=== PATIENT | male | born 1990 | race Caucasian/White ===

== ENCOUNTER 2016-07-14 15:59 | Emergency (ER) | payer OTHER ==
[~2016-07-14] VITALS: Ht 190.5 cm; Wt 181.0 kg
--- OUTSIDE RECORDS SUMMARY | 2016-07-14 16:07 | XMS REPORT | Continuity of Care Document ---
Author Author [facility] Organization [facility] Address Unknown Phone Unavailable Care Team Providers Care Ct Technician Name Role Phone No Pcp, Na PCP Unavailable Source Comments Some departments are not documenting in the electronic medical record. If you do not see the information that you expected, contact Release of Information in the Health Information Management department at [phone] for further assistance in locating additional records.[facility] Active Allergies and Adverse Reactions No Known Allergies Current Medications Prescription Sig. Disp. Refills Start End Date Status Date sumatriptan succinate Take 100 mg by mouth as Active (IMITREX) 100 mg tablet Needed for Migraine symptoms. Dose may be repeated in 2 hours if needed. Max of 2 tablets in 24 hours. DOCOSAHEXANOIC ACID/EPA Take by mouth daily. Active (FISH OIL PO) PV W-O ELISA/FERROUS Take by mouth daily. Active FUMARATE/FA (M-VIT PO) oxyCODONE (ROXICODONE, Take 1-2 Tabs by mouth 30 Tab 0 07/11/19 Active OXY-IR) 5 mg tablet every 4 hours as needed 17 for Pain docusate (COLACE) 100 mg Take 1 Cap by mouth daily 30 Cap 0 07/11/19 Active capsule as needed for 17 Constipation. Active Problems Problem Noted Date Umbilical hernia without obstruction and without gangrene 06/21/2016 Most Recent Encounters Date Type Specialty Providers Description 07/14/2016 Telephone General Surgery Sumeet Weller MD Nausea 07/11/2016 Hospital Sumeet Weller MD Umbilical hernia - Encounter 07/12/2016 07/11/2016 Anesthesia Kumar Armendariz, CHARGEBACK SPECIALIST Event 07/11/2016 Surgery Sumeet Weller MD LAPAROSCOPIC UMBILICAL HERNIA REPAIR WITH MESH 07/06/2016 Prep for Case General Surgery Sumeet Weller MD 06/21/2016 Office Visit General Surgery Sumeet Weller MD Umbilical hernia without obstruction and without gangrene (Primary Dx) Social History Tobacco Use Types Packs/Day Years Used Date Never Smoker Alcohol Use Drinks/Week oz/Week Comments No Last Filed Vital Signs Vital Sign Reading Time Taken Blood Pressure 136/59 07/12/2016 7:25 AM WHEELCHAIR DRIVER Pulse 71 07/12/2016 3:31 AM WHEELCHAIR DRIVER Temperature 36.5 C (97.7 F) 07/12/2016 7:25 AM WHEELCHAIR DRIVER Respiratory Rate 18 06/21/2016 9:21 AM WHEELCHAIR DRIVER Height 1.905 m (6' 3") 07/06/2016 5:25 PM WHEELCHAIR DRIVER Weight 180.985 kg (399 lb) 07/06/2016 5:25 PM WHEELCHAIR DRIVER Body Mass Index 49.87 07/06/2016 5:25 PM WHEELCHAIR DRIVER Oxygen Saturation 95% 07/12/2016 7:25 AM WHEELCHAIR DRIVER Plan of Care Date Type Specialty Providers Description 07/26/2016 Appointment General Surgery Sumeet Weller MD [address] [facility] [address] [place] [address] [phone] (Fax) Health Maintenance Due Date Last Done Comments Physical (Comprehensive) 10/26/1995 Exam Pertussis Vaccine 10/26/1999 Tetanus Vaccine 2005 Influenza Vaccine 01/27/2016 Procedures from Last 3 Months Procedure Name Priority Date/Time Associated Diagnosis Comments ECG-SCAN 07/13/2016 Results for this 12:06 PM WHEELCHAIR DRIVER procedure are in the results section. Results from Last 3 Months ECG-SCAN (07/13/2016 12:06 PM) Narrative Ordered by an unspecified provider. BASIC METABOLIC PANEL (07/12/2016 3:30 AM)Only the most recent of 2 results within the time period is included. Component Value Range Sodium 134 (L) 137-147 MMOL/L Potassium 4.6 3.5-5.1 MMOL/L Chloride 100 98-110 MMOL/L CO2 23 21-30 MMOL/L Anion Gap 11 3-12 Glucose 118 (H) 70-100 MG/DL Blood Urea Nitrogen 14 7-25 MG/DL Creatinine 0.84 0.4-1.24 MG/DL Calcium 9.6 8.5-10.6 MG/DL eGFR Non >60Comment: >60 mL/min The eGFR is not validated for use in drug dosing adjustments. Continue to use estimated creatinine clearance per dosing reference text. Please contact the Clinical Pharmacist for questions. eGFR >60Comment: >60 mL/min The eGFR is not validated for use in drug dosing adjustments. Continue to use estimated creatinine clearance per dosing reference text. Please contact the Clinical Pharmacist for questions. Specimen Blood CBC (07/12/2016 3:30 AM)Only the most recent of 2 results within the time period is included. Component Value Range White Blood Cells 18.5 (H) 4.5-11.0 K/UL RBC 4.75 4.4-5.5 M/UL Hemoglobin 13.9 13.5-16.5 GM/DL Hematocrit 42.5 40-50 % MCV 89.5 80-100 FL MCH 29.2 26-34 PG MCHC 32.6 32.0-36.0 G/DL RDW 13.3 11-15 % Platelet Count 345 150-400 K/UL MPV 7.9 7-11 FL Specimen Blood
--- NOTE | 2016-07-14 17:09 | ED Abdominal Pain ---
General Chief Complaint: Abdominal/GI Problems Stated Complaint: UNABLE TO PASS STOOL Nursing Triage Note: Pt had hernia repair on at [facility]. Pt reports no BM yesterday. Feeling "full" Denies fever. Sepsis Screen: No Definite Risk Exam Limitations: No Limitations History of Present Illness Time Seen By Provider: 17:08 Initial Comments To ER with no bowel movement for the past 4 days and states his abdomen feels full. He had umbilical hernia repair laparoscopically at [facility] on Sunday of this past week (today is Sunday). He is staying here with family but he resides normally in [place]. He did vomit once this morning has been afebrile. He reports that overall his abdominal pain is improving. Timing/Duration: 2-3 Days Severity/Quality: Mild Radiation: No Radiation Associated Symptoms: Nausea/Vomiting Allergies and Home Medications Allergies Coded Allergies: No Known Drug Allergies (Unverified , 07/14/16) Home Medications Oxycodone HCl/Acetaminophen 1 Each Tablet 1 EACH PO Q6H (Reported) Sennosides/Docusate Sodium 1 Each Tablet 1 EACH PO (Reported) Review of Systems Constitutional: see HPI EENTM: No Symptoms Reported Respiratory: No Symptoms Reported Cardiovascular: No Symptoms Reported Gastrointestinal: See HPI Abdominal Pain Constipated Nausea Vomiting Genitourinary: No Symptoms Reported Musculoskeletal: no symptoms reported Skin: no symptoms reported Psychiatric/Neurological: No Symptoms Reported Endocrine: No Symptoms Reported Past Laknzkd-Yfqqud-Wiseto Hx Patient Social History Recent Foreign Travel: No Contact w/Someone Who Travel: No Recent Infectious Disease Expo: No Physical Exam Vital Signs VS - Last 72 Hours, by Label 07/14/16 07/14/16 16:59 19:00 Temp 98.1 Pulse 92 84 Resp 18 16 B/P 181/101 165/103 Pulse Ox 98 99 O2 Delivery Room Air Capillary Refill : Less Than 3 Seconds General Appearance: WD/WN no apparent distress HEENT: PERRL/EOMI normal ENT inspection Neck: non-tender full range of motion Respiratory: normal breath sounds no respiratory distress no accessory muscle use Gastrointestinal: normal bowel sounds soft abnormal bowel sounds (hypoactive) distended Extremities: normal range of motion non-tender Neurologic/Psychiatric: alert normal mood/affect oriented x 3 Skin: normal color warm/dry Progress/Results/Core Measures Results/Orders Lab Results Laboratory Tests Test 07/14/16 17:35 Range/Units Alanine Aminotransferase (ALT/SGPT) 85 H 0-55 U/L Albumin 5.0 H 3.2-4.5 G/DL Alkaline Phosphatase 71 40-136 U/L Anion Gap 15 H 5-14 MMOL/L Aspartate Amino Transf (AST/SGOT) 49 H 5-34 U/L BUN/Creatinine Ratio 15 Band Neutrophils 6 % Basophils # (Auto) 0.0 0.0-0.1 10^3/uL Basophils % (Manual) 0 % Basophils (%) (Auto) 0 0-10 % Blood Morphology Comment NORMAL Blood Urea Nitrogen 15 7-18 MG/DL Calcium Level 10.1 8.5-10.1 MG/DL Carbon Dioxide Level 26 21-32 MMOL/L Chloride Level 97 L 98-107 MMOL/L Creatinine 1.02 0.60-1.30 MG/DL Eosinophils # (Auto) 0.1 0.0-0.3 10^3/uL Eosinophils % (Manual) 0 % Eosinophils (%) (Auto) 1 0-10 % Estimat Glomerular Filtration Rate > 60 Glucose Level 121 H 70-105 MG/DL Hematocrit 47 40-54 % Hemoglobin 16.3 13.3-17.7 G/DL Lymphocytes # (Auto) 1.7 1.0-4.0 X 10^3 Lymphocytes % (Manual) 12 % Lymphocytes (%) (Auto) 8 L 12-44 % Mean Corpuscular Hemoglobin 30 25-34 PG Mean Corpuscular Hemoglobin Concent 35 32-36 G/DL Mean Corpuscular Volume 86 80-99 FL Mean Platelet Volume 9.4 7.4-10.4 FL Monocytes # (Auto) 1.5 H 0.0-1.0 X 10^3 Monocytes % (Manual) 4 % Monocytes (%) (Auto) 7 0-12 % Neutrophils # (Auto) 18.7 H 1.8-7.8 X 10^3 Neutrophils % (Manual) 778 % Neutrophils (%) (Auto) 85 H 42-75 % Platelet Count 418 H 130-400 10^3/uL Potassium Level 4.9 3.6-5.0 MMOL/L Red Blood Count 5.49 4.35-5.85 10^6/uL Red Cell Distribution Width 13.2 10.0-14.5 % Sodium Level 138 135-145 MMOL/L Total Bilirubin 1.2 H 0.1-1.0 MG/DL Total Protein 8.7 H 6.4-8.2 G/DL White Blood Count 22.1 H 4.3-11.0 10^3/uL My Orders Orders-KEENAN PERDOMO APRN Saline Lock/Iv-Start (07/14/16 16:50) Cbc With Automated Diff (07/14/16 16:50) Comprehensive Metabolic Panel (07/14/16 16:50) Ct Abdomen/Pelvis W (07/14/16 16:50) Iohexol Injection (Omnipaque 350 Mg/Ml 1 (07/14/16 17:45) Ns (Ivpb) (Sodium Chloride 0.9% Ivpb Bag (07/14/16 17:45) Manual Differential (07/14/16 17:35) Benzocaine Extension Tube (Hurricaine Ex (07/14/16 18:51) Lactated Ringers (Lr 1000 Ml Iv Solution (07/14/16 19:15) Medications Given in ED Current Medications Medications Dose Ordered Sig/Nelly Route Start Time Stop Time Status Last Admin Dose Admin Iohexol 100 ml ONCE ONCE IV 07/14/16 17:45 07/14/16 17:46 DC 07/14/16 18:01 100 ML Sodium Chloride 100 ml ONCE ONCE IV 07/14/16 17:45 07/14/16 17:46 DC 07/14/16 18:01 80 ML Vital Signs/I&O Vital Sign - Last 12Hours 07/14/16 07/14/16 16:59 19:00 Temp 98.1 Pulse 92 84 Resp 18 16 B/P 181/101 165/103 Pulse Ox 98 99 O2 Delivery Room Air Blood Pressure Mean: 127 Diagnostic Imaging Comments NAME: FAY RAMOS [facility] REC#: [id number] PT STATUS: REG ER : 1990 PHYSICIAN: KEENAN PEDROMO APRN ADMIT DATE: 07/14/16/ER Signed Date of Exam:07/14/16 CT ABDOMEN/PELVIS W PROCEDURE: CT abdomen and pelvis with contrast. TECHNIQUE: Multiple contiguous axial images were obtained through the abdomen and pelvis after administration of intravenous contrast. INDICATION: Umbilical hernia surgery, abdominal pain and distention. COMPARISON: None. FINDINGS: There is some subsegmental atelectasis in both bases. There is fatty liver. Otherwise, the gallbladder, spleen, pancreas, adrenal glands, kidneys, and vascular structures are normal. Multiple distended loops of proximal colon and small bowel are present. This likely represents diffuse ileus. No obvious transition point is identified. Partial obstruction is not excluded. There is no unexpected free air or free fluid. Distal ureters and urinary bladder are normal. IMPRESSION: 1. Likely small bowel and proximal colonic Ileus. Follow-up recommended to exclude obstruction. 2. Fatty infiltration of the liver. 3. Subsegmental atelectasis in both lung bases. Dictated by: Dictated on workstation # [id number] Dict: 07/14/16 1824 Trans: 07/14/16 [id number] Interpreted by: REMEDIOS CARRILLO Electronically signed by: REMEDIOS CARRILLO 07/14/163 Departure Communication Time/Spoke to Admitting Phy: 19:03 Communication Discussed the case with transfer center who discussed the case with Dr. De Leon , surgeon on-call. Feels that this is a postoperative ileus and would recommend nothing by mouth status for a few days allowing the ileus to resolve itself. Patient could be kept here if he wishes or Dr. De Leon would accept patient in transfer back to . I will relay this conversation to our surgeon application consultant Dr. Duong and will coordinate care based on the phone call. 1906-I discussed this with the patient and he states that his preference would be to go back to [place]. He is a very pleasant young man, seems reliable source. States he would not like to go by ambulance because he otherwise feels well, he would like to go by private vehicle and agrees to sign a form stating that he refuses EMS transport. 1950-Room assignment of 4617-2. Vitals remain stable, will transfer via POV per his request. Impression Impression: Primary Impression: Ileus, postoperative Disposition: XFER SHT-TRM HOSP Condition: Stable Departure-Patient Inst. Referrals: NO,LOCAL PHYSICIAN (PCP/Family) Primary Care Physician KEENAN PERDOMO APRN Jul 14, 2016 17:09
[2016-07-14] MEDS ORDERED: OXYC-197 PO (17:12)
[2016-07-14] MEDS ORDERED: SENN-75 PO (17:12)
[2016-07-14 17:44] LABS: BASOPHILS % (AUTO) 0 % (0-10); EOSINOPHILS # (AUTO) 0.1 10^3/uL (0.0-0.3); EOSINOPHILS % (AUTO) 1 % (0-10); LYMPHOCYTES # (AUTO) 1.7 X 10^3 (1.0-4.0); LYMPHOCYTES % (AUTO) 8 % (12-44); MEAN CORPUSCULAR HEMOGLOBIN 30 PG (25-34); MEAN CORPUSCULAR HGB CONC 35 G/DL (32-36); MEAN CORPUSCULAR VOLUME 86 FL (80-99); MEAN PLATELET VOLUME 9.4 FL (7.4-10.4); MONOCYTES # (AUTO) 1.5 X 10^3 (0.0-1.0); MONOCYTES % (AUTO) 7 % (0-12); NEUTROPHILS # (AUTO) 18.7 X 10^3 (1.8-7.8); NEUTROPHILS % (AUTO) 85 % (42-75); PLATELET COUNT 418 10^3/uL (130-400); RED BLOOD COUNT 5.49 10^6/uL (4.35-5.85); RED CELL DISTRIBUTION WIDTH 13.2 % (10.0-14.5); WHITE BLOOD COUNT 22.1 10^3/uL (4.3-11.0)
[2016-07-14] MEDS ORDERED: NS 100 ML (IVPB) BAG IV ONE (17:45)
[2016-07-14] MEDS ORDERED: IOHEXOL 350 MG/ML 100 ML (OMNIPAQUE 350) VIAL IV ONE (17:45)
[2016-07-14 18:00] LABS: ALANINE AMINOTRANSFERASE 85 U/L (0-55); ANION GAP 15 MMOL/L (5-14); ASPARTATE AMINO TRANSFERASE 49 U/L (5-34); BILIRUBIN,TOTAL 1.2 MG/DL (0.1-1.0); BLOOD UREA NITROGEN 15 MG/DL (7-18); BUN/CREATININE RATIO 15; CALCIUM 10.1 MG/DL (8.5-10.1); CARBON DIOXIDE 26 MMOL/L (21-32); CHLORIDE 97 MMOL/L (98-107); CREATININE SERUM 1.02 MG/DL (0.60-1.30); GFR ESTIMATED > 60; GLUCOSE 121 MG/DL (70-105); POTASSIUM 4.9 MMOL/L (3.6-5.0); SODIUM 138 MMOL/L (135-145); TOTAL PROTEIN 8.7 G/DL (6.4-8.2)
[2016-07-14 18:13] LABS: BAND NEUTROPHILS 6 %; BASOPHILS % (MANUAL) 0 %; EOSINOPHILS % (MANUAL) 0 %; LYMPHOCYTES % (MANUAL) 12 %; NEUTROPHILS % (MANUAL) 778 %
--- NOTE | 2016-07-14 18:30 | Diagnostic Imaging Report ---
PROCEDURE: CT abdomen and pelvis with contrast. TECHNIQUE: Multiple contiguous axial images were obtained through the abdomen and pelvis after administration of intravenous contrast. INDICATION: Umbilical hernia surgery, abdominal pain and distention. COMPARISON: None. FINDINGS: There is some subsegmental atelectasis in both bases. There is fatty liver. Otherwise, the gallbladder, spleen, pancreas, adrenal glands, kidneys, and vascular structures are normal. Multiple distended loops of proximal colon and small bowel are present. This likely represents diffuse ileus. No obvious transition point is identified. Partial obstruction is not excluded. There is no unexpected free air or free fluid. Distal ureters and urinary bladder are normal. IMPRESSION: 1. Likely small bowel and proximal colonic Ileus. Follow-up recommended to exclude obstruction. 2. Fatty infiltration of the liver. 3. Subsegmental atelectasis in both lung bases. Dictated by: Dictated on workstation # [id number]
[2016-07-14] MEDS ORDERED: HURRICAINE EXT TUBE (BENZOCAINE) ONE (18:51)
[2016-07-14 19:00] VITALS: BP 165/103
[2016-07-14] MEDS ORDERED: LACTATED RINGERS 1,000 ML IV SCH (19:15)
[2016-07-14 20:00] VITALS: BP 147/85
== END 2016-07-14 20:03 | disposition short-term general hospital (02) ==
LOC: ER 16:03
DX: K91.89 Other postprocedural complications and disorders of digestive system (principal); K76.0 Fatty (change of) liver, not elsewhere classified
CPT/HCPCS: 36415; 74177; 80053; 85007; 85027; 96360